=== PATIENT | male | born 1955 | race Caucasian/White ===

== ENCOUNTER 2025-04-02 09:08 | Emergency (ER) | payer MEDICARE, OTHER, SELFPAY ==
[2025-04-02 09:10] VITALS: BP 158/109
--- NOTE | 2025-04-02 09:21 | ED.GENMED ---
History of Present Illness
General
Chief Complaint: Male Genito-Urinary Symptoms
Time Seen by Provider: 04/02/25 09:14
Nursing documentation reviewed up to this point in time: agreed with
History of Present Illness
History of Present Illness:
69-year-old male presents to the ER for treatment of severe lower abdominal pain and inability to void since last night. Patient underwent TURP with Dr. Ponce last week. He had a Miranda catheter in place but was having significant bladder
spasms yesterday. He was advised to remove the catheter. He reports that there was a very large clot attached to the end of the catheter at time of removal but he was able to void spontaneously throughout the day yesterday. He has been eating and
drinking without difficulty. He denies any fevers or chills. No flank pain. He has had the urge to void but has not been able to pass any significant amount of urine since midnight. He reports the pain to be severe and was unrelieved by the two
5 mg oxycodone he took this morning. No vomiting
Review of Systems
Review of Systems
Allergies reviewed?: Yes
Phy Exam
Physical Exam
Physical Exam:
Patient is awake, alert, has normocephalic atraumatic, PERRL, EOMI, conjunctiva pink, mucous membranes moist, heart regular rate and rhythm that murmurs or ectopy, lungs are clear to auscultation without wheezes rales or rhonchi, no CVA tenderness
on exam, patient is preferring to sit upright on the bed rocking back and forth, diffuse pain on palpation of lower abdomen over palpably distended bladder, extremities without edema, GCS is 15
Course
Orders/Labs/Results
Orders:
Orders
04/02/25 09:14
Bladder Scan- Treatment ONCE
04/02/25 09:18
Miranda Placement- Treatment ONCE
Reason for insertion: Acute Retention
Lidocaine 2% [Lidocaine Uro-Jet 2%] 1 syringe TOPICAL NOW STA
04/02/25 09:40
Urinalysis Reflex To Culture Urgent
Date Specimen was Collected: 04/02/25
Time Specimen was Collected: 09:39
Urine Microscopic Reflex Cult Urgent
Urine Culture Urgent
ZELDA Source: U
Specimen Description:
Date Specimen was Collected: 04/02/25
Time Specimen was Collected: 09:39
Abnormal Lab Results
04/02/25
09:40
Ur Occult Blood Reflex 4+ A
(Negative)
Urine Nitrite (Reflex) Positive A
(Negative)
Urine Bilirubin 2+ A
(Negative)
Urine Urobilinogen 2+ A
(Neg - 1+)
Leukocyte Esterase Rfl 2+ A
(Negative)
Urine RBC 70-80 A /HPF
(0-2)
Urine WBC (Reflex) 30-40 A /HPF
(0-5)
Urine Bacteria (Reflex) Few A
(Negative)
Urine Albumin (Reflex) 3+ A
(Neg - Trace)
Vital Signs
Initial and Last Documented VS:
Initial Vital Signs
Temp Pulse Resp BP Pulse Ox
97.7 F 110 24 158/109 98
04/02/25 09:10 04/02/25 09:10 04/02/25 09:10 04/02/25 09:10 04/02/25 09:10
Last Documented Vital Signs
Temp Pulse Resp BP Pulse Ox
97.7 F 110 24 158/109 98
04/02/25 09:10 04/02/25 09:10 04/02/25 09:10 04/02/25 09:10 04/02/25 09:23
MDM/Problems Addressed
Differential Diagnosis Includes:
Differential diagnosis to consider but not limited to hematuria with clot retention, bladder outlet obstruction, urinary tract infection with hemorrhagic cystitis along with other etiologies considered
Chronic conditions affecting care:
Recent surgery, prior history of bladder cancer
*Pulse Oximetry
SaO2: 98
Oxygen Mode of Delivery: Room air
Patient hypoxic: no
*Critical Care Note
Total Time (30-74mins, 75-104mins- exclusive of procedures): Not Applicable
Update Note
Update Note:
Patient with immediate symptomatic relief after Miranda catheter placed. More than 1 L drained of clear orange-colored urine. Nurse reported no blood clots seen on drainage or brief irrigation after catheter placement. I discussed with patient and
present at bedside urinalysis which is not clearly related to urinary tract infection-would await urine culture results for change in current treatment plan. Patient is currently on Bactrim as prescribed by his urologist. I advised him to
contact urology office today to discuss further care plan. We reviewed strict return precautions. They felt comfortable with plan for discharge and have no questions at the current time.
ED Attending Note
-
Portions of this chart may have been created with voice recognition software.� Occasional wrong word or��sound alike� substitutions may have occurred due to the inherent limitations of voice recognition software.
Discharge Plan
Departure
Patient Disposition: Home (Routine Discharge)
Date of Disposition: 04/02/25
Time of Disposition: 10:32
Patient with high blood pressure during this ER visit?: Yes
Discharge Problem:
Acute urinary retention
Instructions: How to Care for Your Miranda Catheter, Male, BLOOD PRESSURE
Referrals:
PRIVATE,PHYSICIAN [Family Provider, Internal Medicine]
Activity Restrictions/Additional Instructions:
Please contact your urology office today to discuss events in the ER and new catheter placement so that you may plan for when catheter should be removed and be seen in their office for follow-up. Complete course of Bactrim as currently taking.
Please return to the ER for any concerns, including but not limited to if you feel the catheter is no longer draining
Interventions
Interventions:
*Risk Screen - Suicide Last Done: 04/02/25 09:10
*General Assessment Last Done: 04/02/25 09:10
*Neglect/Abuse Screening Last Done: 04/02/25 09:22
*ED- Fall Risk Assessment Last Done: 04/02/25 09:22
*ED COVID-19 Vaccine History Last Done: 04/02/25 09:22
ED-Male Genitourinary Assessment Last Done: 04/02/25 09:45
Discharge Date and Time
Print Language: GERMAN
[2025-04-02] MEDS: LIDOCAINE URO-JET 2% 1 SYRINGE TOPICAL (09:26)
[2025-04-02 10:08] LABS: Urine Character Clear (Clear)
[2025-04-02 10:28] LABS: Urine Squamous Cell 0-2 /LPF (Few)
[2025-04-02 10:29] LABS: Urine Red Blood Cell 70-80 /HPF (0-2); Urine White Cell 30-40 /HPF (0-5)
[2025-04-02 10:46] VITALS: BP 130/89
== END 2025-04-02 10:52 | disposition home or self-care (01) ==
LOC: EMR 09:08
PROVIDERS: EMERGENCY PHYSICIAN Emergency Medicine
DX: R33.9 Retention of urine, unspecified (principal); Z85.51 Personal history of malignant neoplasm of bladder; Z90.79 Acquired absence of other genital organ(s)
CPT/HCPCS: 51702; 99283; 81003; 81015; 87086

== ENCOUNTER 2025-07-08 09:06 | Emergency (ER) | payer MEDICARE, OTHER, SELFPAY ==
[2025-07-08 09:13] VITALS: BP 175/91
[2025-07-08 10:20] LABS: Urine Character Clear (Clear)
[2025-07-08 10:30] LABS: Urine Red Blood Cell 0-2 /HPF (0-2); Urine Squamous Cell 0-2 /LPF (Few); Urine White Cell 40-50 /HPF (0-5)
--- NOTE | 2025-07-08 10:30 | ED.GENMED ---
History of Present Illness
General
Chief Complaint: Male Genito-Urinary Symptoms
Source: patient
Exam Limitations: none
Time Seen by Provider: 07/08/25 09:17
Nursing documentation reviewed up to this point in time: agreed with
History of Present Illness
History of Present Illness:
SEE MDM
Review of Systems
Review of Systems
Allergies reviewed?: Yes
All Other Systems: Not applicable
Phy Exam
Physical Exam
Physical Exam:
GENERAL: Alert , in no apparent distress, well appearing
EYE: pupils equal and reactive
NECK: Supple
ENT: o/p clr, mmm.
CARDIAC: Regular rate and rhythm .
LUNGS: Clear breath sounds bilaterally, no acute respiratory distress, no wheezes/rales/rhonchi
ABDOMEN: Soft, without focal tenderness, no r/g, no cvat, normal bowel sounds
NEUROLOGICAL: Alert and oriented, no focal neuro deficits
SKIN: Warm and dry, skin intact.
MUSCULOSKELETAL: No edema, well perfused. neg janett's sign
PSYCH: Normal and appropriate interaction.
Course
Orders/Labs/Results
Orders:
Orders
07/08/25 09:35
Urinalysis Urgent
Date Specimen was Collected: 07/08/25
Time Specimen was Collected: 09:17
Urine Microscopic Urgent
Date Specimen was Collected: 07/08/25
Time Specimen was Collected: 09:17
Urine Culture Urgent
ZELDA Source: U
Specimen Description:
Date Specimen was Collected: 07/08/25
Time Specimen was Collected: 09:17
Comment: Add on per Jasmin Lindsey PA-C
07/08/25 10:00
Add On - Microbiology Urgent
Tests Added?: urine culture
07/08/25 10:54
Bladder Scan- Treatment ONCE
07/08/25 10:55
Cefdinir [Omnicef] 300 mg PO NOW STA
Abnormal Lab Results
07/08/25
09:35
Urine Ketones 2+ A
(Negative)
Urine Occult Blood 4+ A
(Negative)
Ur Leukocyte Esterase 3+ A
(Negative)
Urine WBC 40-50 A /HPF
(0-5)
Urine Bacteria Few A
(Negative)
Urine Albumin 1+ A
(Neg - Trace)
Vital Signs
Initial and Last Documented VS:
Initial Vital Signs
Temp Pulse Resp BP Pulse Ox
37.3 C 96 18 175/91 96
07/08/25 09:13 07/08/25 09:13 07/08/25 09:13 07/08/25 09:13 07/08/25 09:13
Last Documented Vital Signs
Temp Pulse Resp BP Pulse Ox
37.3 C 88 16 168/89 98
07/08/25 09:13 07/08/25 11:20 07/08/25 11:20 07/08/25 11:20 07/08/25 11:20
MDM/Problems Addressed
Differential Diagnosis Includes:
See MDM
MDM/Problems Addressed:
Note:
CHIEF COMPLAINT(S)
Fever and potential urinary tract infection (UTI) during bladder cancer chemotherapy treatment.
HISTORY OF PRESENT ILLNESS
The patient is a 69-year-old male currently undergoing intravesical chemotherapy for bladder cancer. He has completed two treatments and is scheduled for his third tomorrow, out of a total of six treatments. Last night, the patient experienced a
fever of 102�F, accompanied by chills, and managed the symptoms with an electric blanket, resulting in sweating and a fever reduction to 99�F by this morning. He performed a home urine test last night that indicated a urinary tract infection. The
patient expresses concern about the possibility of a UTI delaying his scheduled chemotherapy. He has been advised by his oncology team at [facility] to obtain a confirmatory urine test at a medical facility. The patient drank significant water to flush
his system and has not taken any medications, including antipyretics, for the fever.
Two weeks ago, the patient recalls experiencing a mild sore throat and cough without significant fever and did not undergo testing for influenza or COVID-19. He denies any current symptoms of sore throat, cough, vomiting, or diarrhea. During
chemotherapy, a Miranda catheter is placed, but it is not currently present. The patient reports normal urination but describes distress associated with catheter use and bladder instillation during chemotherapy.
PAST MEDICAL AND SURGICAL HISTORY
The patient has undergone a hip replacement surgery.
CHRONIC MEDICAL CONDITIONS SIGNIFICANTLY AFFECTING CARE
Bladder cancer, currently receiving chemotherapy.
SOCIAL DETERMINANTS AFFECTING HEALTH
The patient is managing significant stress related to maintaining his chemotherapy schedule amidst potential complications of infection.
REVIEW OF SYSTEMS
- Constitutional: Fever up to 102�F, chills, resolved to 99�F by morning
- Respiratory: Mild cough two weeks ago, no current cough
- Gastrointestinal: No vomiting or diarrhea
- Genitourinary: Reports a positive home urine test for UTI, normal voiding without Miranda catheter
PHYSICAL EXAM
- Nursing notes reviewed and vital signs reviewed.
GENERAL: Alert , in no apparent distress, well-appearing, afebrile
EYE: pupils equal and reactive
NECK: Supple
ENT: o/p clr, mmm.
CARDIAC: Regular rate and rhythm .
LUNGS: Clear breath sounds bilaterally, no acute respiratory distress, no wheezes/rales/rhonchi
ABDOMEN: Soft, without focal tenderness, no r/g, no cvat, normal bowel sounds
NEUROLOGICAL: Alert and oriented, no focal neuro deficits
SKIN: Warm and dry, skin intact.
MUSCULOSKELETAL: No edema, well perfused. neg janett's sign
PSYCH: Normal and appropriate interaction.
PROBLEM LIST
- Acute: Fever, suspected urinary tract infection
- Chronic: Bladder cancer
PLAN
- Obtain a urine sample for laboratory testing to confirm the presence of a UTI.
- Consider additional laboratory work including blood cultures to rule out bacteremia or sepsis due to immune suppression from chemotherapy.
- Await guidance from oncology team regarding potential administration of intravenous antibiotics.
- Monitor for any signs of systemic infection due to the patients compromised immune status from ongoing chemotherapy.
DIFFERENTIAL DIAGNOSIS
The Differential Diagnosis includes, in no particular order and is not limited to:
1. Urinary Tract Infection
2. Chemotherapy-related fever
3. Bacterial sepsis
4. Viral illness (e.g., Influenza or COVID-19)
5. Pyelonephritis
6. Non-infectious fever due to malignancy
7. Catheter-associated urinary tract infection
8. Blood culture contamination
9. Drug Fever
10. Paraneoplastic fever
CARE-UPDATE
07/08/25 - 10:56
During the reassessment, the patient was confirmed to have a bladder infection, likely due to frequent catheterization, contributing to manipulation and bacteria. The patient is undergoing chemotherapy with gemcitabine and docetaxel for bladder
cancer. There was difficulty in coordination with the patients urologist at [facility] regarding the management of the infection, the fellow was uncomfortable providing any direct patient care advice over the phone.
After consulting a local urologist, Dr. Pena the recommendation was to administer oral antibiotics, allowing the patient to be treated and discharged home unless further complications arose. There was microscopic blood in the urine along with
leukocytes, bacteria, and white blood cells present, indicative of infection. The prescribed antibiotic, sa cefdinir ssanine, and another medication,with a 7 to ten-day course recommended. The patient expressed concerns about potential interference
with travel plans and treatment schedule, emphasizing the importance of effective and timely infection management. The patient�s living situation on a sail[place] was discussed, highlighting logistics and medical follow-up considerations.
*Pulse Oximetry
SaO2: 96
Oxygen Mode of Delivery: Room air
Patient hypoxic: no (96)
*Critical Care Note
Total Time (30-74mins, 75-104mins- exclusive of procedures): Not Applicable
Update Note
Update Note:
07/11/2025 0615 AM
Urine culture grew out Morganella, patient is on cefdinir and is sensitive to ceftriaxone, no treatment change required
ED Attending Note
-
Portions of this chart may have been created with voice recognition software.� Occasional wrong word or��sound alike� substitutions may have occurred due to the inherent limitations of voice recognition software.
Discharge Plan
Departure
Patient Disposition: Home (Routine Discharge)
Date of Disposition: 07/08/25
Time of Disposition: 11:14
Patient with high blood pressure during this ER visit?: Yes
Condition: Fair
Covid-19: Not Applicable
Discharge Problem:
UTI (urinary tract infection)
Instructions: Urinary tract infection in adults - ED (DC)
Prescriptions:
New
cefdinir 300 mg capsule
300 mg PO Q12H Qty: 20 0RF
Referrals:
UNKNOWN - PT DOES,NOT KNOW [Family Provider]
Activity Restrictions/Additional Instructions:
You have a urinary tract infection. Take cefdinir twice a day for 7 to 10 days. I gave you 10 days worth, your urologist can stop it at 7 days if you are improved. Make sure that you are not spiking fevers after being on antibiotics for 1 to 2
days. If you are you need to be seen again. Return for any concerns like inability to empty your bladder, significantly bloody urine, high fever not responding to Tylenol, vomiting, back pain etc. Please call your urologist for further
instructions
Interventions
Interventions:
*Risk Screen - Suicide Last Done: 07/08/25 09:13
*General Assessment Last Done: 07/08/25 09:49
*Neglect/Abuse Screening Last Done: 07/08/25 09:49
*ED COVID-19 Vaccine History Last Done: 07/08/25 09:13
*ED Influenza Vaccine History Last Done: 07/08/25 09:13
[facility] Risk Assessment Tool Last Done: 07/08/25 09:45
*Nursing Disposition Last Done: 07/08/25 11:20
ED-Male Genitourinary Assessment Last Done: 07/08/25 10:07
Discharge Date and Time
Discharge Date/Time: 07/08/25 11:20
Print Language: TURKMEN
[2025-07-08] MEDS: OMNICEF 300 MG PO (11:02)
[2025-07-08 11:20] VITALS: BP 168/89
== END 2025-07-08 11:20 | disposition home or self-care (01) ==
LOC: EMR 09:06
PROVIDERS: Emergency Medicine; EMERGENCY PHYSICIAN Emergency Medicine
DX: N39.0 Urinary tract infection, site not specified (principal); R50.9 Fever, unspecified; Z85.51 Personal history of malignant neoplasm of bladder; Z96.649 Presence of unspecified artificial hip joint
CPT/HCPCS: 99282; 81003; 81015; 87077; 87086; 87186

== ENCOUNTER 2025-07-24 10:34 | Inpatient (IN) | payer MEDICARE, OTHER, SELFPAY ==
[2025-07-23 20:00] VITALS: BP 152/78
[2025-07-23] MEDS: TYLENOL 1000 MG PO (20:40)
[2025-07-23] MEDS: NSS 1000 IV (20:40)
[2025-07-23 20:48] LABS: Hematocrit 38.2 % (39.0-52.0); Hemoglobin 13.2 g/dL (13.0-18.0); Mean Corp Hgb Conc. 34.6 g/dL (33.0-37.0); Mean Corpuscular Volume 84.5 fL (80.0-94.0); Nucleated Red Blood Cells % 0 % (-); Platelet Count 229 10^3/uL (130-400); Red Cell Dist. Width 13.5 % (11.5-14.5)
[2025-07-23 20:49] LABS: Urine Character Slightly Cloudy (Clear)
[2025-07-23 20:57] VITALS: BP 115/64
[2025-07-23 21:00] VITALS: BP 115/59
[2025-07-23 21:07] LABS: Urine Squamous Cell 0-2 /LPF (Few); Urine White Cell 30-40 /HPF (0-5)
[2025-07-23 21:10] LABS: ALT (SGPT) 38 U/L (0-50); AST (SGOT) 40 U/L (17-59); Albumin 4.3 g/dl (3.5-5.0); Alkaline Phosphatase 65 U/L (38-126); Blood Urea Nitrogen 17 mg/dl (9-20); Calcium 9.3 mg/dl (8.4-10.2); Carbon Dioxide 18 mmol/L (22-30); Chloride 97 mmol/L (98-107); Glucose 137 mg/dl (70-99); Potassium 4.0 mmol/L (3.5-5.1); Sodium 126 mmol/L (135-145); Total Protein 7.3 g/dl (6.3-8.2); eGFR > 60.00
[2025-07-23 21:13] LABS: COVID-19 Antigen Negative (Negative)
[2025-07-23 21:25] VITALS: BMI 31.4
--- NOTE | 2025-07-23 21:32 | EDRN ---
Patient and updated on labs, patient ambulated to the restroom and back in bed resting, temperature has improved.
--- NOTE | 2025-07-23 21:45 | ED.GENMED ---
History of Present Illness
General
Chief Complaint: Male Genito-Urinary Symptoms
Source: patient and spouse (Spouse states that he had a recent presentation for similar issues)
Time Seen by Provider: 07/23/25 20:20
History of Present Illness
History of Present Illness:
Note:
CHIEF COMPLAINT(S)
Fever and difficulty urinating.
HISTORY OF PRESENT ILLNESS
The patient is a 69-year-old male with a history of urological procedures currently undergoing treatment with intravesical Gemcitabine for bladder cancer. He presented with a fever, previously recorded at 103.5�F, which prompted him to seek
emergency care. About two weeks prior, the patient experienced a similar episode of fever, following which he was treated with antibiotics, believed to assist in alleviating the symptoms.
The patient describes his current symptoms as being consistent with previous instances, including soreness upon urination due to a painful contraction and relaxation cycle of the bladder sphincter muscle. His symptoms are exacerbated by the
chemotherapeutic agent causing urine foaming and difficulty voiding despite increased fluid intake, a recommendation from his cancer support group. The patient denies any recent shaking chills, rash, or sore throat but reports some difficulty in
swallowing and shortness of breath.
An MRI from a recent visit highlighted a calcification of lymph nodes near the heart area.
PHYSICAL EXAM
- General: Alert, no acute distress.
- Skin: Warm, dry, no rash noted.
- Head: Normocephalic, atraumatic.
- Neck: Supple, trachea midline.
- Eye, Ears, Nose, Mouth and Throat: Oral mucosa moist.
- Cardiovascular: Irregular rhythm, but no acute findings.
- Respiratory: Clear lung truong bilaterally. Respirations are non-labored.
- Gastrointestinal: Abdomen nondistended.
- Back: Normal range of motion, normal alignment.
- Musculoskeletal: Normal range of motion, normal strength.
- Neurological: Alert and oriented to person, place, time, and situation. Non-focal neurological examination.
- Psychiatric: Cooperative, appropriate mood and affect.
PROBLEM LIST
- Fever (acute).
- Difficulty urinating (acute).
- Bladder cancer under treatment (chronic).
PLAN
- Review recent lab results and imaging studies to evaluate for any new developments or interventions.
- Consideration of adjustment to the treatment regimen, focusing on symptom management associated with urination difficulties and fever.
- Follow up with the oncology and urology teams to ensure coordinated care, especially in light of previous communication challenges with the patients surgeon.
DIFFERENTIAL DIAGNOSIS
The Differential Diagnosis includes, in no particular order and is not limited to:
1. Urinary tract infection (UTI)
2. Surgical site infection
3. Drug fever secondary to Gemcitabine
4. Bladder irritation
5. Viral infection (e.g., influenza)
6. Prostatitis
7. Community-acquired pneumonia
8. Pyelonephritis
9. Sepsis
10. Dehydration
Disposition:
SUMMARY OF ENCOUNTER
The patient is a 69-year-old male presenting with fever after intravesical chemotherapy. Urinalysis showed nitrate-positive urine, and significant white blood cells with moderate bacteria were noted, indicating a possible urinary tract infection.
Previous cultures showed growth of Morganella morganii susceptible to cephalothin. Laboratory analysis revealed a left shift in CBC with mild hyponatremia. He was treated with intravenous antibiotics in the emergency department due to his continued
fever and tachycardia.
DISPOSITION
Admit.
INDEPENDENT REVIEW OF LABS AND INTERPRETATION OF TESTS
My independent review of CBC indicates a white blood cell count of 9.6 with 88% neutrophils. My independent review of serum chemistry shows mild hyponatremia at 126. My independent review of lactic acid shows a normal level at 0.8. My independent
review of liver function tests indicates normal results. My independent review of COVID-19 test is negative.
MEDICATION RECONCILIATION
Intravenous antibiotics were administered for suspected urinary tract infection.
MEDICAL DECISION MAKING
-Number and Complexity of Problems Addressed: Chronic conditions affecting care: bladder cancer under treatment.
Differential diagnosis includes urinary tract infection, drug fever secondary to Gemcitabine, and bladder irritation.
-Data:
Category 1: Reviewed previous cultures from April 08, 2025, showing Morganella morganii, susceptible to cephalothin.
Category 2: No independent historian information recorded.
-Risk: Prescription drug management with intravenous antibiotics was administered for the treatment of the suspected infection. Escalation of care was warranted due to persistent fever and tachycardia, leading to the patients admission for further
management.
DIAGNOSIS
- Urinary tract infection (N39.0)
- Fever (R50.9)
- Tachycardia, unspecified (R00.0)
Phy Exam
Physical Exam
Physical Exam:
.
Sepsis
Sepsis Screening
Sepsis Assessment: Sepsis
Sepsis Screen
Sepsis Screen: Sepsis
Date: 07/23/25
Time: 21:48
Course
Orders/Labs/Results
Orders:
Orders
07/23/25 20:03
Cardiac Monitoring- Treatment ONCE
IV Insert/Care/Rem.- Treatment PRN
O2 Therapy [RESP] Urgent
Titrate/Wean O2 to maintain O2 sat greater than (%): 93
Special Instructions: TO MAINTAIN CONTINUOUS O2 SATS > OR = 93%
Pulse Ox/cont/shift [RESP] Urgent
Quantity: 1
Special Instructions: CONTINUOUS
07/23/25 20:25
Complete Blood Count/With Diff Urgent
Comprehensive Metabolic Panel Urgent
Lactic Acid Q4H
Comment: ON ICE, CANCEL 2ND ORDER IF FIRST LACTIC ACID LEVEL <2
Urinalysis Reflex To Culture Urgent
Date Specimen was Collected: 07/23/25
Time Specimen was Collected: 20:03
Urine Microscopic Reflex Cult Urgent
Blood Culture Q20M
ZELDA Source: Blood/Venous
Specimen Description:
Comment: Urgent from separate sites. If patient screens positive for possible sepsis
Blood Culture Q20M
ZELDA Source: Blood/Venous
Specimen Description:
Comment: Urgent from separate sites. If patient screens positive for possible sepsis
Urine Culture Urgent
ZELDA Source: U
Specimen Description:
Date Specimen was Collected: 07/23/25
Time Specimen was Collected: 20:03
07/23/25 20:34
COVID-19 Antigen Urgent
Source: Nasal Swab
Influenza A+B Rapid Molecular Urgent
ZELDA Source: Nasal Swab
Specimen Description:
07/23/25 20:37
Acetaminophen [Tylenol] 1,000 mg .ROUTE .STK-MED ONE
07/23/25 20:39
0.9% Sodium Chloride 1000 ml [Nss] 1,000 ml IV BOLUS
Acetaminophen [Tylenol] 1,000 mg PO NOW STA
07/23/25 21:43
Cefepime HCl [Maxipime] 2,000 mg IV NOW STA
07/24/25 00:15
Lactic Acid Q4H
Comment: ON ICE, CANCEL 2ND ORDER IF FIRST LACTIC ACID LEVEL <2
Abnormal Lab Results
07/23/25
20:25
RBC 4.52 L 10^6/uL
(4.70-6.10)
Hct 38.2 L %
(39.0-52.0)
Abs Immat Gran (auto) 0.1 H 10^3/uL
(0-0.05)
Absolute Neuts (auto) 8.4 H 10^3/uL
(1.4-6.5)
Absolute Lymphs (auto) 0.4 L 10^3/uL
(1.2-3.4)
Neutrophils % 88.0 H %
(42.2-75.2)
Lymphocytes % 4.6 L %
(20.5-51.1)
Sodium 126 L mmol/L
(135-145)
Chloride 97 L mmol/L
(98-107)
Carbon Dioxide 18 L mmol/L
(22-30)
Glucose 137 H mg/dl
(70-99)
Urine Ketones 2+ A
(Negative)
Ur Occult Blood Reflex 3+ A
(Negative)
Urine Nitrite (Reflex) Positive A
(Negative)
Urine Bilirubin 2+ A
(Negative)
Urine Urobilinogen 2+ A
(Neg - 1+)
Leukocyte Esterase Rfl 3+ A
(Negative)
Urine RBC 7-10 A /HPF
(0-2)
Urine WBC (Reflex) 30-40 A /HPF
(0-5)
Urine Bacteria (Reflex) Moderate A
(Negative)
Urine Albumin (Reflex) 2+ A
(Neg - Trace)
07/23/25 20:25
07/23/25 20:25
Vital Signs
Initial and Last Documented VS:
Initial Vital Signs
Temp Pulse Resp BP Pulse Ox
98.4 F 139 18 152/78 96
07/23/25 20:00 07/23/25 20:00 07/23/25 20:00 07/23/25 20:00 07/23/25 20:00
Last Documented Vital Signs
Temp Pulse Resp BP Pulse Ox
101.3 F H 105 28 115/59 95
07/23/25 21:25 07/23/25 21:30 07/23/25 21:30 07/23/25 21:00 07/23/25 21:30
*Pulse Oximetry
SaO2: 95
Oxygen Mode of Delivery: Room air
Patient hypoxic: no
*Critical Care Note
Total Time (30-74mins, 75-104mins- exclusive of procedures): 30 minutes
ED Attending Note
-
Portions of this chart may have been created with voice recognition software.� Occasional wrong word or��sound alike� substitutions may have occurred due to the inherent limitations of voice recognition software.
Discharge Plan
Departure
Patient Disposition: Admit
Date of Disposition: 07/23/25
Time of Disposition: 21:45
Admit to: Med/Surg
Presentation/result/management discussed w/ accepting MD/DO: Hospitalist
Discharge Problem:
Urinary tract infection, Sepsis, Acute hyponatremia
Prescriptions:
No Action
cefdinir 300 mg capsule
300 mg PO Q12H Qty: 20 0RF
Referrals:
Demetria Sanford CRNP [Family Provider, General]
Interventions
Interventions:
*General Assessment Last Done: 07/23/25 20:41
*Neglect/Abuse Screening Last Done: 07/23/25 20:00
*ED COVID-19 Vaccine History Last Done: 07/23/25 20:41
*ED Influenza Vaccine History Last Done: 07/23/25 20:41
*Risk Screen - Suicide (C-SSRS) Last Done: 07/23/25 20:00
ED-Male Genitourinary Assessment Last Done: 07/23/25 21:33
Discharge Date and Time
Print Language: BANGLADESHI
[2025-07-23] MEDS: MAXIPIME 2000 MG IV (21:56)
[2025-07-23 22:00] VITALS: BP 112/61
--- NOTE | 2025-07-23 22:27 | HPS.HSE ---
Family Physician
-
Family Physician: MADINA Kincaid
Chief Complaint
-
fever
History of Present Illness
Patient is a 69-year-old male with past medical history significant for hypertension, hyperlipidemia, bladder cancer who presented to [facility] ED for evaluation of fever. Patient reports receiving intravesical Gemcitabine today at [facility] for his bladder
cancer. He endorses dysuria, frequency and urgency. Patient notes that similar symptoms have happened following chemo administration the past few times, he was treated with oral antibiotics and felt symptoms improved. Patient denies any hematuria,
chills, cough, chest pain, shortness of breath, nausea, vomting, constipation, dairrhea or urinary symptoms.
Medical History
Past Medical History
Past Medical History: Reports Other
Additional Past Medical History:
bladder cancer
hypertension
hyperlipidemia
Past Surgical History: Reports Other
Additional Past Surgical History:
cystoscopy
appendectomy
right hip replacement
Social History
Tobacco: Non-smoker
Alcohol: Occasional
Drug: None
Personal:
Living: With Family
Employment: Retired
Family History
Family History: Other (Mother: DM)
Allergies / Home Medications
Allergies reflects when Allergies were last updated in [email or web address].
Home Medications with original date entered in [email or web address]
Allergy/Medication List:
Allergies
Allergy/AdvReac Type Severity Reaction Status Date / Time
No Known Allergies Allergy Verified 07/23/25 20:00
Home Medications
losartan 25 mg tablet 25 mg PO BID 07/23/25
methenam 118 mg-m.blue 10 mg-s.phos 40.8 mg-p.salic 36 mg-hyos capsule 2 tab PO QID 07/23/25
oxybutynin chloride 5 mg tablet 10 mg PO TID 07/23/25
phenazopyridine 100 mg tablet (Pyridium) 100 mg PO TID 07/23/25
rosuvastatin 5 mg tablet 5 mg PO HS 07/23/25
Review of Systems
-
History Source: Patient
Constitutional: Reports Fever; Denies Chills
EENT: Denies Sore Throat
Respiratory: Denies Cough or Trouble Breathing
Cardiac: Denies Chest Pain, Diaphoresis, Palpitations or Syncope
Abdomen/GI: Denies Abdominal Pain, Nausea, Vomiting or Diarrhea
: Reports Dysuria, Frequency and Urgency
Musculoskeletal: Denies Joint Pain
Skin: Denies Rash
Neurological: Denies Dizzy, Headache, Weakness or Numbness
Endocrine: Denies Polyuria
Physical Exam
Vital Signs
Vital Signs
Temp Pulse Resp BP Pulse Ox
101.3 F H 105 28 115/59 95
07/23/25 21:25 07/23/25 21:30 07/23/25 21:30 07/23/25 21:00 07/23/25 21:47
Physical Exam
General: Well Developed, Well Nourished, No Apparent Distress, Comfortable, Conversant and Obese
HEENT: NormoCephalic, Moist mucous membranes, PERRLA, Nose Appears Normal and Ears Appear Normal
Respiratory: Clear and Non Labored Respirations; No Wheezes, Rales or Rhonchi
Cardiac: S1/S2 and Regular Rhythm; No Murmur or Peripheral Edema
GI: Soft, Non Tender, Non Distended and Normal Bowel Sounds
Musculoskeletal: No Clubbing, No Cyanosis and No Edema
Skin: Warm and IV/Catheter Site
Neuro: Awake and AO x 3
Psych: Calm and Intact Judgment/Insight
Laboratory Results
-
07/23/25 20:25
07/23/25 20:25
Laboratory Results
Lactic Acid 0.8 mmol/L (0.7-2.0) 07/23/25 20:25
Total Bilirubin 0.7 mg/dl (0.2-1.3) 07/23/25 20:25
AST 40 U/L (17-59) 07/23/25 20:25
ALT 38 U/L (0-50) 07/23/25 20:25
Alkaline Phosphatase 65 U/L (38-126) 07/23/25 20:25
Data Reviewed
-
Lab Data: Labs Reviewed by me (Neut 88.0, Na 126)
Impression/Plan
-
IMPRESSION/PLAN:
#fever likely 2/2 UTI
fever, dysuria, frequency and urgency with abrupt onset this afternoon
Neut 88.0, Na 126
UA: indicative of UTI
Urine Cx: pending
Blood Cx: pending
Covid: negative
Influenza: negative
CXR: 1. No radiographic evidence for pneumonia or pleural effusion.
2. CHRONIC GRANULOMATOUS DISEASE INFECTION with calcified bilateral hilar lymph nodes.
3. Mildly decreased bilateral lung volumes.
- Admit to med/surg
- IV Cefepime
- IVF NS 100cc/hr
- supportive care
#bladder cancer
follows with Dr. Kael Martel at [facility]
weekly intravesical Gemcitabine, last administration today, 07/23/2025
- continue to follow up out patient as scheduled
- continue oxybutynin and Uribel
#hypertension
- continue losartan
#hyperlipidemia
- continue rosuvastatin
Code status: full code
DVT prophylaxis: Lovenox sq
[2025-07-23 23:00] VITALS: BP 118/64
--- NOTE | 2025-07-23 23:01 | W.PN.UPDATE ---
Update Note
Progress Note Update
Patient seen in conjunction with nurse practitioner. I agree with the findings on history and physical and I concur with the assessment and plan.
Patient is a 69-year-old male with past medical history significant for hypertension, hyperlipidemia and recent diagnosis of bladder cancer status post total cystoscopy and currently on cycles of intravesicular gemcitabine and Taxol who presents to
the emergency department with recurrent urinary symptoms after is intravesical instillation of chemotherapy.
Patient reported that he has now finished 3 cycles with each cycle he has developed urinary symptoms and fevers. He was last treated with antibiotics 2 weeks ago when he presented after installation with c/o dysuria and fevers. He is found to have
Morganella UTI at that time. He was placed on cefdinir and completed 10-day course. He received instillation again 1 week ago on Wednesday but he was still on antibiotics at that time. A few days later he did have chills but then had no fevers. He
received installation today and thereafter coming home he developed chills and rigors and dysuria and then had a fever. He was then brought to the emergency department.
He is pending 1 more course of treatment.
In the ED was febrile to 103, blood pressure was 115/60 with a pulse rate of 107 and oxygen saturation that was initially 88% but now 97% on 1 L. His chest x-ray was clear. He does have some chronic granulomatous changes consistent with a chronic
granulomatous infection. His UA was markedly positive. There is no leukocytosis. Electrolytes notable for a sodium of 126 but otherwise unremarkable with normal BUN/creatinine. Patient reports history of a nonobstructing kidney stone in the past
but has never caused issues.
Suspect recurrent urinary tract infection likely due to catheter placement and may require prophylactic antibiotic prior to is next treatment. Patient will likely be on antibiotics up until that time if he is to be on 10 days of antibiotics.
Although he is febrile he hemodynamically stable, lactic acid is negative, he has no endorgan damage. His sodium is 126 however. Does not meet sepsis criteria
� Given he was recently on cefdinir we will continue with cefepime 2 g every 8 for now
� Continue with IV fluids
� Pain control
� Antiemetics
� Blood cultures and urine cultures have been sent, determine oral antibiotics based on cultures
� No indication for repeat imaging at this time
� May consider ID consultation if patient's culture growth is negative
� Continue his home medications
DVT prophylaxis�Lovenox subcu
CODE STATUS�full code
[2025-07-24 00:49] VITALS: BP 130/75
--- NOTE | 2025-07-24 01:52 | PTCARENOTE ---
Patient arrived from ED via stretcher. Patient AAOx3, vital signs stable, and complains of no pain. Patient has their own CPAP. Patient being transferred to private room due to chemo precautions.
[2025-07-24 02:04] VITALS: BP 127/76; BMI 30.3
[2025-07-24] MEDS: NSS 1000 IV ×3 (03:43→23:15)
--- NOTE | 2025-07-24 04:48 | PTCARENOTE ---
patient received from [facility]. came down in bed. assessment completed. AOx3. oriented to room and call kramer. POC ongoing.
[2025-07-24] MEDS: MAXIPIME 2000 MG IV ×3 (05:55→21:47)
[2025-07-24] MEDS: STERILE WATER FOR INJECTION 10 ML IV ×3 (05:56→21:47)
[2025-07-24 06:29] LABS: Hematocrit 36.0 % (39.0-52.0); Hemoglobin 12.4 g/dL (13.0-18.0); Mean Corp Hgb Conc. 34.4 g/dL (33.0-37.0); Mean Corpuscular Volume 87.0 fL (80.0-94.0); Platelet Count 194 10^3/uL (130-400); Red Cell Dist. Width 13.7 % (11.5-14.5)
[2025-07-24 07:00] VITALS: BP 106/58
[2025-07-24 07:25] LABS: Blood Urea Nitrogen 15 mg/dl (9-20); Calcium 8.8 mg/dl (8.4-10.2); Carbon Dioxide 20 mmol/L (22-30); Chloride 101 mmol/L (98-107); Estimated Creatinine Clearance 93 ml/min; Glucose 117 mg/dl (70-99); Potassium 4.1 mmol/L (3.5-5.1); Sodium 132 mmol/L (135-145); eGFR > 60.00
[2025-07-24] MEDS: COZAAR 25 MG PO ×2 (07:59→20:35)
--- NOTE | 2025-07-24 12:34 | W.PN.HOSP.TC ---
Today's Communication/Plan
-
Continue antibiotics
Assessment / Plan
Assessment / Plan
Gen-AAOx3, NAD
HEENT-NC, AT, anicteric, clear oral mm
Neck-supple
CV-reg, no M, +S1/S2
Lungs-clear B/L
Abd-soft, NT, ND
Ext-no edema
Musculoskeletal-no cyanosis, clubbing
Skin-warm and dry
Neuro-grossly non-focal
Psych-calm, cooperative
Recurrent UTI -complicated infection in the setting of bladder cancer with treatment. Clinically improving on cefepime. Await cultures. Hemodynamically stable.
He recently finished a course of cefdinir last week.
Hyponatremia -present on admission. Improving. Suspect may be related to intravesicular treatment for his bladder cancer.
Bladder cancer -getting intravesicular chemotherapy. Under the care of Dr. Martel at [facility].
Essential hypertension -stable.
Hyperlipidemia -rosuvastatin.
Obesity due to excess calories
Full code
Anticipated Discharge: Within 24 hours
Subjective/Interval History
-
Date of Service: July 24, 2025
Patient seen and examined, feels better. No complaints.
Objective Data
-
Labs:
Laboratory Results
07/24/25
06:09
WBC 6.8
Hgb 12.4 L
Hct 36.0 L
Plt Count 194
Sodium 132 L
Potassium 4.1
Chloride 101
Carbon Dioxide 20 L
BUN 15
Creatinine 0.9
Glucose 117 H
Calcium 8.8
Vital Signs:
Vital Signs
Temp Pulse Resp BP Pulse Ox
97.8 F 70 17 106/58 96
07/24/25 07:00 07/24/25 07:59 07/24/25 07:00 07/24/25 07:59 07/24/25 09:19
I&O
07/23/25 07/24/25 07/25/25
06:59 06:59 06:59
Output Total 600 / 600
Balance -600 / -600
Review of Systems
-
History Source: Patient
All other systems: Reviewed and negative
[2025-07-24 15:03] VITALS: BP 111/54
[2025-07-24 23:35] VITALS: BP 122/63
[2025-07-25] MEDS: MAXIPIME 2000 MG IV (06:20)
[2025-07-25] MEDS: STERILE WATER FOR INJECTION 10 ML IV (06:21)
[2025-07-25 07:01] LABS: Blood Urea Nitrogen 17 mg/dl (9-20); Calcium 9.0 mg/dl (8.4-10.2); Carbon Dioxide 24 mmol/L (22-30); Chloride 106 mmol/L (98-107); Estimated Creatinine Clearance 104 ml/min; Glucose 94 mg/dl (70-99); Potassium 4.8 mmol/L (3.5-5.1); Sodium 136 mmol/L (135-145); eGFR > 60.00
[2025-07-25] MEDS: COZAAR 25 MG PO (08:16)
[2025-07-25 08:23] VITALS: BP 123/62
[2025-07-25] MEDS: NSS 1000 IV (09:01)
--- NOTE | 2025-07-25 10:41 | W.PN.HOSP.TC ---
Addendum entered and electronically signed by Ji Lobato DO 07/28/25 12:49:
Suspected catheter associated UTI due to bladder cancer treatment.
Original Note:
Today's Communication/Plan
-
Discharge
Assessment / Plan
Assessment / Plan
Gen-AAOx3, NAD
HEENT-NC, AT, anicteric, clear oral mm
Neck-supple
CV-reg, no M, +S1/S2
Lungs-clear B/L
Abd-soft, NT, ND
Ext-no edema
Musculoskeletal-no cyanosis, clubbing
Skin-warm and dry
Neuro-grossly non-focal
Psych-calm, cooperative
Recurrent UTI -complicated infection in the setting of bladder cancer with treatment. Clinically improving on cefepime. Await cultures. Hemodynamically stable. No signs or symptoms of sepsis. However, prior to admission he did have chills.
He recently finished a course of cefdinir last week, but did not feel improved despite completing 10 days of antibiotics.
Patient requesting discharge today. I explained to him that the urine culture has not resulted and if we discharge him today we would have to pick empiric antibiotics based on previous urine culture from 07/08 showing Morganella. Given failure on
oral cephalosporins prior to admission we will pick a different class of antibiotics such as fluoroquinolones given the sensitivity results. Patient okay with plans for discharge. I explained that if his current urine culture results as resistant
to fluoroquinolones then we will have to call him and change the antibiotic prescription as an outpatient. He is okay with the plan. Updated at the bedside. She is in agreement.
Hyponatremia -present on admission. Suspect may be related to intravesicular treatment for his bladder cancer. Sodium improved.
Bladder cancer -getting intravesicular chemotherapy. Under the care of Dr. Martel at [facility].
Essential hypertension -stable.
Hyperlipidemia -rosuvastatin.
Obesity due to excess calories
Full code
Dispo -stable for discharge today. Outpatient follow-up.
35 minutes spent in discharge process.
Anticipated Discharge: Today
Subjective/Interval History
-
Date of Service: July 25, 2025
Patient seen and examined. No complaints.
Objective Data
-
Labs:
Laboratory Results
07/25/25
06:12
Sodium 136
Potassium 4.8
Chloride 106
Carbon Dioxide 24
BUN 17
Creatinine 0.8
Glucose 94
Calcium 9.0
Vital Signs:
Vital Signs
Temp Pulse Resp BP Pulse Ox
98.3 F 57 16 123/62 96
07/25/25 08:23 07/25/25 08:23 07/25/25 08:23 07/25/25 08:23 07/25/25 10:04
I&O
07/24/25 07/25/25 07/26/25
06:59 06:59 06:59
Output Total 600 / 600
Balance -600 / -600
Review of Systems
-
History Source: Patient
All other systems: Reviewed and negative
--- NOTE | 2025-07-25 10:50 | W.DS.TRANS ---
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
-
Discharge Instructions:
Discharge Diagnosis/Procedures UTI
Diet Regular
Activity As tolerated
Driving Restrictions As prior to admission
Bathing Restrictions None
Instructions:
Stand-Alone Forms:
Changes to Home Medications: No
Discharge Medications:
DC Medications w/original date entered in [employer]
losartan 25 mg tablet 25 mg PO BID Blood Pressure 07/23/25
methenam 118 mg-m.blue 10 mg-s.phos 40.8 mg-p.salic 36 mg-hyos capsule 2 tab PO QID Urinary Issue 07/23/25
oxybutynin chloride 5 mg tablet 10 mg PO TID Urinary Issue 07/23/25
phenazopyridine 100 mg tablet (Pyridium) 100 mg PO TID bladder pain/spasm 07/23/25
levofloxacin 750 mg tablet 750 mg PO DAILY #21 tabs 07/25/25
Home Medication Changes
Pending Results: No
[2025-07-25 12:10] VITALS: BP 148/78
--- NOTE | 2025-07-27 15:46 | PN.CDI ---
CDI
- -
CDI:
Physician Documentation Request
Admit Date: 07/24/25 10:34
Dear Doctor Cheryle,
Please review the following and provide your response in the progress notes.
Clinical Indicators:
PN, 07/23
#Suspect recurrent urinary tract infection likely due to catheter placement
#...and may require prophylactic antibiotic prior to is next treatment.
#...Patient will likely be on antibiotics up until that time if he is to be on
#...10 days of antibiotics.
Discharge Summary, 07/25
#DISCHARGE DIAGNOSES:
#...1. Recurrent urinary tract infection.
#HOSPITAL COURSE:
#...undergoing treatment for bladder cancer with intravesicular chemotherapy
#...who presented to the hospital with complaints of difficulty urinating,fevers and chills.
#...recently completed a course of cefdinir for UTI one week
#...prior to presentation to the emergency room.
Based on the above and your clinical assessment, please clarify the relationship, if any, between these conditions:
Yes, UTI is related to/associated with/due to Catheter Placement.
No, UTI is not related to/associated with/due to Catheter Placement but it is due to ___. (Please specify)
Recurrent UTI only
Other (please specify)
Use of terms such as suspected, likely, concern for, or probable (associated with a specific diagnosis that is being evaluated, monitored, or treated as if it exists) are acceptable and can be coded in the inpatient setting, when documented at the
time of discharge.
Thank you,
Yanci Hogan RN BSN CCDS
CDI Specialist
Please contact via tiger text
Please use your independent medical judgment in providing your response.
== END 2025-07-25 12:27 | disposition home or self-care (01) | DRG 699 ==
LOC: 3 WEST ACU 10:34
PROVIDERS: Nurse Practitioner Family; ADMITTING PHYSICIAN Internal Medicine; ATTENDING PHYSICIAN Hospitalist; EMERGENCY PHYSICIAN Emergency Medicine; FAMILY PHYSICIAN Registered Nurse
DX: T83.511A Infection and inflammatory reaction due to indwelling urethral catheter, initial encounter (principal); E87.1 Hypo-osmolality and hyponatremia; N39.0 Urinary tract infection, site not specified; C67.9 Malignant neoplasm of bladder, unspecified; I10 Essential (primary) hypertension; E78.5 Hyperlipidemia, unspecified; Z96.641 Presence of right artificial hip joint; Z11.52 Encounter for screening for COVID-19; E66.09 Other obesity due to excess calories; Z68.30 Body mass index [BMI] 30.0-30.9, adult; Z83.3 Family history of diabetes mellitus; Z87.440 Personal history of urinary (tract) infections; T45.1X5A Adverse effect of antineoplastic and immunosuppressive drugs, initial encounter
CPT/HCPCS: 71046; 80048; 80053; 81003; 81015; 83605; 85025; 85027; 87040; 87086; 87502; 87811; 96360; 99291